=== PATIENT | female | born 1980 | race Caucasian/White ===

== ENCOUNTER → 2025-04-14 | Day surgery (SDC) | payer BC ==
[~2025-04-14] MED LIST: Sodium Bicarbonate 2.5 MEQ/5 ML SDV ONE
[2025-04-14 10:13] VITALS: BP 106/49; TEMP 97.6
== END ==
LOC: CSHRAD 09:14
PROVIDERS: ATTEND Nurse Practitioner Family
PROC: B02BYZZ Computerized Tomography (CT Scan) of Spinal Cord using Other Contrast (ICD-10-PCS; principal; 2025-04-14)
DX: M54.14 Radiculopathy, thoracic region (principal); M54.16 Radiculopathy, lumbar region
CPT/HCPCS: 62284; 72129; 72132; 77003

== ENCOUNTER 2025-04-16 11:13 | Emergency (ER) | payer BC ==
[2025-04-16] MEDS ORDERED: Orphenadrine Citrate 60 MG/2 ML VIAL ONE (12:25)
[2025-04-16 12:56] LABS: Glucose, Urine (Dipstick) Normal (Negative); Leukocyte Negative (Negative); Protein, Urine (Dipstick) 15 mg/dl (Neg-Trace); Specific Gravity, Urine 1.020 (1.005-1.030)
[2025-04-16 13:02] LABS: #Basophils 0.04 10x3/uL (0.0-0.2); #Eosinophils 0.24 10x3/uL (0.0-0.5); #Monocytes 0.68 10x3/uL (0.0-1.1); #Neutrophils 4.76 10x3/uL (1.5-8.4); %Basophils 0.6 % (0.0-2.0); %Eosinophils 3.3 % (0.0-6.0); %Lymphocytes 19.5 % (18.0-47.0); %Monocytes 9.5 % (0.0-10.0); %Neutrophils 66.1 % (40.0-75.0); Hematocrit 32.4 % (34.9-44.5); Hemoglobin 11.1 g/dL (12.0-15.5); Mean Corpuscular Hemoglobin 29.7 pg (27.0-33.0); Mean Corpuscular Volume 86.6 fL (81.6-98.3); Platelet Count 273 10x3/uL (150-450); Red Blood Cell (RBC) Count 3.74 10x6/uL (3.90-5.03); White Blood Cell (WBC) Count 7.19 10x3/uL (3.5-10.5)
[2025-04-16 13:04] LABS: Bacteria/HPF 4+ HPF (None Seen); CAUTI Indications for Culture Pelvic or flank pain; Mucous/LPF Rare LPF (<2+); RBC/HPF None Seen HPF (0-3); Urine Culture Reflex No No
[2025-04-16 13:10] LABS: BHCG - Serum Negative (NEGATIVE); Pregs Control Background? CLEAR/WHITE (CLR/WHITE); Pregs Control Bar Appear? YES (CONTROL BAR)
[2025-04-16 13:17] LABS: ALT (SGPT) 13 U/L (Less than 34); AST (SGOT) 22 U/L (11-34); Albumin 4.2 g/dL (3.1-4.5); Alkaline Phosphatase 62 U/L (40-110); Anion Gap 12 mmol/L (10-20); BUN (Urea Nitrogen) 20 mg/dL (7.0-18.7); Bilirubin, Total 0.2 mg/dL (0.3-1.2); Calc. Creatinine Clearance 0 mL/min (70-130); Calcium 9.2 mg/dL (7.8-10.44); Carbon Dioxide 22 mmol/L (22-29); Chloride 98 mmol/L (98-107); Globulin 2.7 g/dL (2.4-3.5); Glucose 91 mg/dL (70-105); Potassium 4.8 mmol/L (3.5-5.1); Sodium 127 mmol/L (136-145)
[2025-04-16] MEDS ORDERED: Ketorolac Tromethamine 30 MG (1 mL) VIAL ONE (13:48)
[2025-04-16] MEDS ORDERED: Ondansetron PF 4 MG/2 ML Vial ONE (14:01)
== END 2025-04-16 15:08 | disposition home or self-care (01) ==
LOC: CSHERS 11:13
DX: M54.50 Low back pain, unspecified (principal); N39.0 Urinary tract infection, site not specified
CPT/HCPCS: 36415; 74176; 80053; 81001; 84703; 85025; 96372; 96374; 96375; J1885; J2360; J2405; J3010